=== PATIENT | male | born 1985 ===

== ENCOUNTER 2017-04-25 16:50 | Emergency (ER) | payer OTHER ==
[2017-04-25 17:15] VITALS: BP 125/88
--- NOTE | 2017-04-25 19:04 | RAD ---
Indication: Acute back pain post lifting injury 3 days ago. Comparison: No relevant prior exams available on the [facility] P[facility] for comparison. Technique: AP, lateral, and oblique views lumbar sacral spine. Report: Negative for vertebral body fracture. Potential LEFT unilateral L5 spondylolysis. Negative for spondylolisthesis. Preserved disc spaces. Unremarkable paraspinal soft tissue contours. IMPRESSION: Suggestion of LEFT unilateral L5 spondylolysis without associated spondylolisthesis.
--- NOTE | 2017-04-25 20:13 | UC ---
Back Pain HPI - HPI Summary HPI Summary: 32 y/o male presents to the urgent care c/o lower back pain for the past 3 weeks. Pt reports he slipped on ice and fell backwards. He applied some [employer] [place] herbals medicine and symptoms were improving. However, he lifted some heavy boxes about 3 days ago and exacerbated the pain. Pain is 7/10 w/ sitting and standing and 3/10 w/ rest. Pt denies any radiation, saddle anesthesia, urinary and fecal incontinence, numbness or tingling over the lower extremities , SOB. chest pain, abdominal pain, N/V/D - History of Current Complaint Chief Complaint: UCBackPain Stated Complaint: BACK PAIN C Time Seen by Provider: 04/25/17 20:04 Hx Obtained From: Patient Onset/Duration: Gradual Onset, Lasting Weeks - 3 weeks, Still Present, Worse Since - 3 days Timing: Intermittent Severity Initially: Moderate Severity Currently: Moderate Pain Intensity: 7 Pain Scale Used: 0-10 Numeric Back Pain: Is Discrete @ - lower back Character: Sharp, Spasmodic Aggravating Factor(s): Movement, Lifting, Bending Alleviating Factor(s): Rest, OTC Meds Associated Signs And Symptoms: Positive: Pain with Weight Bearing. Negative: Swelling, Redness, Bruising, Fever, Weakness, Numbness, Tingling, Abdominal Pain , Flank Pain, Bladder Incontinence, Bowel Incontinence, Weight Loss - Risk Factors AAA Risk Factors: Negative TAD Risk Factors: Negative Cauda Equina Risk Factors: Negative Epidural Abscess Risk Factors: Negative - Allergies/Home Medications Allergies/Adverse Reactions: Allergies Allergy/AdvReac Type Severity Reaction Status Date / Time No Known Allergies Allergy Verified 04/25/17 17:16 PMH/Surg Hx/FS Hx/Imm Hx Previously Healthy: Yes - Pt denies PMHX - Surgical History Surgical History: None - Family History Known Family History: Positive: None - Pt denies FMHX - Social History Occupation: Employed Full-time Lives: With Family Alcohol Use: None Substance Use Type: None Smoking Status (MU): Never Smoked Tobacco Review of Systems Constitutional: Negative Skin: Negative Eyes: Negative ENT: Negative Respiratory: Negative Cardiovascular: Negative Gastrointestinal: Negative Genitourinary: Negative Motor: Negative Neurovascular: Negative Musculoskeletal: Other: - lower back pain s/p fall Neurological: Negative Psychological: Negative Is Patient Immunocompromised?: No All Other Systems Reviewed And Are Negative: Yes Physical Exam Triage Information Reviewed: Yes Vital Signs: Initial Vital Signs Temp 98.7 F 04/25/17 17:08 Pulse 71 04/25/17 17:08 Resp 16 04/25/17 17:08 BP 125/88 04/25/17 17:08 Pulse Ox 99 04/25/17 17:08 - Additional Comments Appearance: Well-Appearing, Well-Nourished, Thin female sitting in the examining table w/o any apparent distress. Vital Signs Reviewed: Yes Eyes: Positive: Conjunctiva Clear - PERRLA, EOMI. ENT: Positive: Normal ENT inspection, Hearing grossly normal, Pharynx normal, TMs normal, Uvula midline Neck: Positive: Supple, Nontender, No Lymphadenopathy Respiratory: Positive: Chest non-tender, Lungs clear, Normal breath sounds, No respiratory distress Cardiovascular: Positive: RRR, No Murmur, Pulses Normal, Brisk Capillary Refill Abdomen Description: Positive: Nontender, No Organomegaly, Soft. Negative: CVA Tenderness (R), CVA Tenderness (L) Bowel Sounds: Positive: Present Musculoskeletal: Positive: Strength Intact, Other: - BACK: Patient walked into the urgent care room with symmetric ambulation, No signs of limping, antalgic, able to bear weight. No signs of trauma, No masses palpated. Point tenderness at the level of L5-S1, No CVAT, no flank ecchymosis . No sacroiliac notch tenderness, No saddle anesthesia.ROM: limited due to pain, Straight Leg Raise: negative. Patellar reflexes: brisk, symmetric Muscle strength lower extremities. Dorsiflexion/ plantar flexion of ankles. Heel/ toe walk. Lower extremities: Femoral, popliteal, posterior tibial, and dorsalis pedis pulses WNL. Pt refuse rectal exam Neurological: Positive: Alert, Muscle Tone Normal Psychological Exam: Normal Skin Exam: Normal Back Pain Course/Dx - Course Course Of Treatment: 32 y/o male presents to the urgent care c/o lower back pain for the past 3 weeks. Pt reports he slipped on ice and fell backwards. He applied some [employer] [place] herbals medicine and symptoms were improving. However, he lifted some heavy boxes about 3 days ago and exacerbated the pain. Pain is 7/10 w/ sitting and standing and 3/10 w/ rest. Pt denies any radiation, saddle anesthesia, urinary and fecal incontinence, numbness or tingling over the lower extremities, SOB. chest pain, abdominal pain, N/V/D. Hx obtained. PE: Point tenderness at the level of the L5-S1 and left paraspinal muscle spasm at the same level on examination. Lumbosacral X-ray ordered, Impression: Suggestion of LF unilateral spondyolisis w/o associated spondyolisthesis. Naproxen PO ordered at the clinic. Given by nurse. Pt tolerated well medication pain decrease. Pt Rx Naproxen PO, flexeril PO. Patient was instructed to the f/u [facility] orthopedic in 1 week if symptoms do not improve or worsen. Patient understands and agrees. Patient is able to ambulate freely w/o aid or limp. Plan of care was discussed with the patient and patient understands and agrees. All questions were answered at patient satisfaction. Pt left clinic hemodynamically stable. - Differential Dx/Diagnosis Differential Diagnosis/HQI/PQRI: Compressive Cord Syndrome, Herniated Disc, Renal Colic, Strain, Sprain Provider Diagnoses: 1- Acute lower back pain. 2- Back spasm Discharge - Discharge Plan Condition: Stable Disposition: HOME Prescriptions: Cyclobenzaprine TAB* [Flexeril 10 MG TAB*] 10 mg PO TID PRN #15 tab PRN Reason: Spasms - Back Naproxen [Naproxen 500 mg] 500 mg PO Q8H PRN #30 tab PRN Reason: Pain Patient Education Materials: Acute Low Back Pain (ED), Muscle Spasm (ED) Referrals: [facility] [Outside] - 1 Week Paulino Araujo MD [Medical Doctor] - 1 Week Additional Instructions: 1- Please take Naproxen PO as directed after meals for pain. 2- Take Flexeril PO as directed for muscle spasm. Please do not drive while taking the medication. 3- Wear a back support. Avoid strenuous exercise of heavy lifting. 4- Please follow up with Orthopedic Dr Araujo or your PCP in 1 week if not improvement of symptoms, for further management.
[2017-04-25] MEDS ORDERED: Naproxen TAB* 250 MG PO ONE (20:21)
== END 2017-04-25 20:41 | disposition home or self-care (01) ==
LOC: UCEAST 16:50
DX: M54.5 Low back pain (principal); M62.830 Muscle spasm of back
CPT/HCPCS: 72110; 99202; A9270-GY; G0463

== ENCOUNTER 2017-10-09 16:41 | Emergency (ER) | payer OTHER ==
--- NOTE | 2017-10-09 18:27 | ED ---
Shortness of Breath - HPI Summary HPI Summary: This is scribe Khris Edwardsin documenting for attending Dr. Rusty Peck MD. A 32 y/o male MAC presents to ED c/o resolved SOB. Currently, the patient feels much better now and is overall healthy as he has no symptoms anymore. According to the friend, she made him lunch (rice and noodles) around 1500. After approximately one hour, he felt very uncomfortable and dizzy and went to bed. After 15-20 minutes the patient experiences difficulty breathing (SOB) and pressure in his chest. He denies any chest pain, fever, chills or nausea. No PMHx. No major surgeries. SHx of no drugs, no ETOH, however, was a former smoker (years ago). - History of Current Complaint Chief Complaint: EDGeneral Time Seen by Provider: 10/09/17 18:15 Hx Obtained From: Patient Onset/Duration: Sudden Onset, Lasting Minutes, Resolved Current Severity: None Dyspnea At: Rest Aggrevating Factors: Nothing Alleviating Factors: Nothing Associated Signs & Symptoms: Negative - Allergy/Home Medications Allergies/Adverse Reactions: Allergies Allergy/AdvReac Type Severity Reaction Status Date / Time No Known Allergies Allergy Verified 04/25/17 17:16 Home Medications: Home Medications NK [No Home Medications Reported] 10/09/17 [History Confirmed 10/09/17] PMH/Surg Hx/FS Hx/Imm Hx Musculoskeletal History: Denies: Hx Scoliosis Neurological History: Denies: Hx Headaches, Other Neuro Impairments/Disorders Infectious Disease History: No Infectious Disease History: Denies: Traveled Outside the [place] in Last 30 Days - Family History Known Family History: Positive: Other - CABG grandfather and his sister. - Social History Alcohol Use: None Substance Use Type: Reports: None Smoking Status (MU): Former Smoker Review of Systems Negative: Fever, Chills Positive: Other - POSITIVE: Chest pressure. Negative: Chest Pain Positive: Shortness Of Breath Negative: Nausea Neurological: Other - POSITIVE: resolved dizziness. All Other Systems Reviewed And Are Negative: Yes Physical Exam - Summary Physical Exam Summary: VITAL SIGNS: Reviewed. GENERAL: Patient is a well-developed and nourished male who is lying comfortable in the stretcher. Patient is not in any acute respiratory distress. HEAD AND FACE: No signs of trauma. No ecchymosis, hematomas or skull depressions. No sinus tenderness. EYES: PERRLA, EOMI x 2, No injected conjunctiva, no nystagmus. EARS: Hearing grossly intact. Ear canals and tympanic membranes are within normal limits. MOUTH: Oropharynx within normal limits. NECK: Supple, trachea is midline, no adenopathy, no JVD, no carotid bruit, no c- spine tenderness, neck with full ROM. CHEST: Symmetric, no tenderness at palpation LUNGS: Clear to auscultation bilaterally. No wheezing or crackles. CVS: Regular rate and rhythm, S1 and S2 present, no murmurs or gallops appreciated. ABDOMEN: Soft, non-tender. No signs of distention. No rebound no guarding, and no masses palpated. Bowel sounds are normal. EXTREMITIES: FROM in all major joints, no edema, no cyanosis or clubbing. NEURO: Alert and oriented x 3. No acute neurological deficits. Speech is normal and follows commands. SKIN: Dry and warm GCS: 15 Triage Information Reviewed: Yes Vital Signs On Initial Exam: Initial Vitals Temp Pulse Resp BP Pulse Ox 97.7 F 80 16 140/94 100 10/09/17 16:53 10/09/17 16:53 10/09/17 16:53 10/09/17 16:53 10/09/17 16:53 Vital Signs Reviewed: Yes Diagnostics - Vital Signs Vital Signs Temp Pulse Resp BP Pulse Ox 10/09/17 18:18 61 114/76 99 10/09/17 18:10 57 98 10/09/17 16:53 97.7 F 80 16 140/94 100 - Laboratory Result Diagrams: 10/09/17 18:31 10/09/17 18:31 Lab Statement: Any lab studies that have been ordered have been reviewed, and results considered in the medical decision making process. - Radiology CXR Radiology Interpretation Completed By: Radiologist - No active disease. ED physician reviewed this radiology report. - CT BRAIN CT CT Interpretation Completed By: Radiologist - Negative examination. ED physician reviewed this radiology report. - EKG 1836 Cardiac Rate: Bradycardia - 55 BPM EKG Rhythm: Sinus Bradycardia EKG Interpretation: No ST elevation. Normal axis. Course/Dx - Course Assessment/Plan: Patient is a 32-year-old male who presents to the emergency department with a chief complaint of having shortness of breath, dizziness and not feeling well. Blood test results without any significant abnormality except for potassium level of 3.2. Magnesium is normal. The patient was given potassium chloride by mouth. Urinalysis is negative for UTI, urine toxicology is negative. Head CT impression: Negative examination. Chest x-ray impression : No active disease. EKG shows a normal sinus rhythm without any ST elevations. In the ED course the patient was given IV fluids and the symptoms resolved. The patient has remained asymptomatic for a couple hours. The patient is ambulating in the ER without any dizziness, shortness of breath or palpitations. Therefore the patient will be discharged home with follow-up with primary care physician. Patient is hemodynamically stable alert and oriented 3. - Diagnoses Provider Diagnoses: Dizziness, Hypokalemia Discharge - Sign-Out/Discharge Documenting (check all that apply): Patient Departure - DISCHARGE - Discharge Plan Condition: Stable Disposition: HOME Patient Education Materials: Dizziness (ED), Hypokalemia (ED) Referrals: No Primary Care Phys,NOPCP [Primary Care Provider] - [facility] [Outside] - 1 Week Additional Instructions: FOLLOW UP WITH YOUR PRIMARY CARE PROVIDER WITHIN ONE WEEK FOR HIGH BLOOD PRESSURE NOTED TODAY. RETURN TO THE ED FOR ANY WORSENING OR NEW SYMPTOMS.
[2017-10-09 18:45] LABS: ABS Basophils 0 10^3/ul (0-0.2); ABS Eosinophils 0.1 10^3/ul (0-0.6); ABS Lymphocytes 1.1 10^3/ul (1.0-4.8); ABS Monocytes 0.3 10^3/ul (0-0.8); ABS Neutrophils 5.4 10^3/ul (1.5-7.7); ABS Nucleated RBC 0 10^3/ul; Eosinophil % 0.9 % (0-6); Hematocrit 45 % (42-52); Hemoglobin 15.9 g/dl (14.0-18.0); Lymphocyte % 16.3 % (25-47); Mean Corpuscular HGB Conc 35 g/dl (31-36); Mean Corpuscular Hemoglobin 30 pg (27-31); Mean Corpuscular Volume 85 fL (80-94); Mean Platelet Volume 7.6 um3 (7.4-10.4); Nucleated Red Blood Cells % 0.1; Platelet Count 187 10^3/ul (150-450); Red Blood Count 5.31 10^6/ul (4.00-5.40); Red Cell Distribution Width 13 % (10.5-15)
[2017-10-09 19:03] LABS: EGFR Non-African American 89.7 (>60)
--- NOTE | 2017-10-09 19:21 | RAD ---
INDICATION: Dizziness COMPARISON: None TECHNIQUE: Noncontrast axial source images were acquired from the skull base to the vertex. FINDINGS: Ventricles/sulci: The ventricles and cisterns are normal in size and configuration for age. Brain parenchyma: There is no focal parenchymal finding, evidence of intracranial mass, or intracranial mass effect. Intracranial hemorrhage:None. Extra-axial spaces: There are no abnormal extra axial fluid collections or evidence of extra-axial mass. Calvarium: There is no calvarial fracture or other calvarial abnormality. Scalp: There is no evidence of scalp or extracalvarial soft tissue abnormality. Paranasal sinuses/mastoid: The paranasal sinuses and mastoid air cells are clear. Other: None. IMPRESSION: NEGATIVE EXAMINATION
--- NOTE | 2017-10-09 19:22 | RAD ---
INDICATION: Dizziness COMPARISON: None TECHNIQUE: PA and lateral dual-energy views were obtained. FINDINGS: Bones/Soft Tissues: There are no acute bony findings. Cardiomediastinal: The cardiomediastinal silhouette is normal. Lungs: There are no infiltrates. Pleura: There are no pleural effusions. Other: None IMPRESSION: NO ACTIVE DISEASE.
[2017-10-09 19:36] LABS: Urine Appearance Cloudy; Urine Blood Negative (Negative); Urine Color Yellow; Urine Ketones Trace (Negative); Urine Protein Negative (Negative); Urine Specific Gravity 1.014 (1.010-1.030); Urine Urobilinogen Negative (Negative)
[2017-10-09] MEDS ORDERED: Potassium Chlor TAB* 20 MEQ TAB.ER PO ONE (20:12)
[2017-10-09 21:04] VITALS: BP 125/81
== END 2017-10-09 21:07 | disposition home or self-care (01) ==
LOC: ED 16:41
DX: R42 Dizziness and giddiness (principal); E87.6 Hypokalemia; R07.89 Other chest pain; R06.02 Shortness of breath; Z87.891 Personal history of nicotine dependence
CPT/HCPCS: 36415; 70450; 71046; 80053; 80307; 81003; 83605; 83735; 83880; 84443; 84484; 85025; 86140; 93005; 99284; A9270-GY

== ENCOUNTER 2018-09-05 09:07 | Emergency (ER) | payer OTHER ==
[2018-09-05 09:45] VITALS: BP 108/74
--- NOTE | 2018-09-05 09:56 | UC ---
Skin Complaint HPI - HPI Summary HPI Summary: 33-year-old male presents with complaints of painful, red rash to his left chest and back. States rash started approximately 7-10 days ago. Began worsening over the weekend. Describes pain as needle-like. Denies fever or chills. - History of Current Complaint Chief Complaint: UCSkin Time Seen by Provider: 09/05/18 09:28 Stated Complaint: RASH ON LT SIDE Hx Obtained From: Patient Pain Intensity: 1 - Allergy/Home Medications Allergies/Adverse Reactions: Allergies Allergy/AdvReac Type Severity Reaction Status Date / Time No Known Allergies Allergy Verified 09/05/18 09:36 PMH/Surg Hx/FS Hx/Imm Hx Previously Healthy: Yes - Denies significant PMH - Surgical History Surgical History: None - Family History Known Family History: Positive: Other - CABG grandfather and his sister. - Social History Occupation: Employed Full-time Lives: With Family Alcohol Use: None Substance Use Type: None Smoking Status (MU): Former Smoker Length of Time of Smoking/Using Tobacco: 5-6 years When Did the Patient Quit Smoking/Using Tobacco: 2008 Review of Systems All Other Systems Reviewed And Are Negative: Yes Constitutional: Negative: Fever, Chills Skin: Positive: Rash Respiratory: Positive: Negative Cardiovascular: Positive: Negative Gastrointestinal: Positive: Negative Genitourinary: Positive: Negative Musculoskeletal: Positive: Negative Neurological: Positive: Negative Is Patient Immunocompromised?: No Physical Exam - Summary Physical Exam Summary: GENERAL APPEARANCE: Well developed, well nourished, alert and cooperative, and appears to be in no acute distress. CARDIAC: Normal S1 and S2. No S3, S4 or murmurs. Rhythm is regular. There is no peripheral edema, cyanosis or pallor. Extremities are warm and well perfused. Capillary refill is less than 2 seconds. Peripheral pulses intact. LUNGS: Clear to auscultation without rales, rhonchi, wheezing or diminished breath sounds. ABDOMEN: Positive bowel sounds. Soft, nondistended, nontender. No guarding or rebound. No masses or hepatosplenomegally. MUSKULOSKELETAL: ROM intact to all extremities. No joint erythema or tenderness. Normal muscular development. Normal gait. SKIN: Skin normal color, texture and turgor. Vesicular, erythematous, dermatomal rash noted to left chest and back. Triage Information Reviewed: Yes Vital Signs: Initial Vital Signs Temp 98.6 F 09/05/18 09:36 Pulse 68 09/05/18 09:36 Resp 16 09/05/18 09:36 BP 108/74 09/05/18 09:36 Pulse Ox 98 09/05/18 09:36 Vital Signs Reviewed: Yes Course/Dx - Course Course Of Treatment: 33-year-old male presents with complaints of painful, red rash to his left chest and back. States rash started approximately 7-10 days ago. Began worsening over the weekend. Describes pain as needle-like. Denies fever or chills. Afebrile. Vital signs stable. Patient has a vesicular, erythematous, dermatomal rash to his left chest and back consistent with herpes zoster. Since he is continuing to develop lesions I will start him on a Cyclovir 1000 mg 3 times a day 7 days. He is to use [id number] acetaminophen or ibuprofen as needed for pain. I provided him with the contact information for the [facility] [place] physician referral service to assist him in establishing with a primary care provider if he needs follow-up. Anticipatory guidance and warning symptoms were reviewed with the patient. Verbalizes understanding and agrees with plan of care. - Differential Diagnoses - Skin Complaint Differential Diagnoses: Cellulitis, Contact Dermatitis, Tinea, Varicella Zoster - Diagnoses Provider Diagnosis: Herpes zoster Discharge - Sign-Out/Discharge Documenting (check all that apply): Patient Departure All imaging exams completed and their final reports reviewed: No Studies - Discharge Plan Condition: Stable Disposition: HOME Prescriptions: Valacyclovir HCl [Valacyclovir] 1,000 mg PO TID #21 tab Patient Education Materials: Shingles (ED) Referrals: No Primary Care Phys,NOPCP [Primary Care Provider] - [facility] [place] [facility] [Outside] Additional Instructions: Your rash is consistent with shingles. Since you are continuing to develop new lesions we will start to on an antiviral medication that is meant to help reduce the duration and severity of your symptoms. Start valacyclovir 1000 mg 3 times a day for 7 days. Take acetaminophen (Tylenol) or ibuprofen (Advil, Motrin) according to directions as needed for pain. X As long as you have blisters likely need to be cautious around women, people with impaired immune systems, and anyone who has not had chickenpox or been vaccinated for chickenpox as you could potentially infect them. Once all the blisters have dried up and crusted over you are no longer infectious. I have given you the contact information for the [facility] [place] physician referral service to assist you with establishing with a primary care provider. Seek immediate medical attention if you develop fever greater than 100.5 F, have a redness that continues to spread, or any worsening of symptoms. - Billing Disposition and Condition Condition: STABLE Disposition: Home
== END 2018-09-05 10:11 | disposition home or self-care (01) ==
LOC: UCEAST 09:07
DX: B02.9 Zoster without complications (principal); Z87.891 Personal history of nicotine dependence
CPT/HCPCS: 99212; G0463